=== PATIENT | female | born 1950 | race Asian ===

== ENCOUNTER 2019-03-06 15:14 | Emergency (ER) | payer MEDICARE, OTHER ==
[~2019-03-06] VITALS: Ht 162.6 cm; Wt 75.9 kg
[2019-03-06] MEDS ORDERED: SITA1TBM4 PO (15:34)
[2019-03-06] MEDS ORDERED: ASPI81 PO (15:34)
[2019-03-06] MEDS ORDERED: TELM40 PO (15:34)
[2019-03-06] MEDS ORDERED: ATOR40TA28 PO (15:34)
[2019-03-06] MEDS ORDERED: GLYB5 PO (15:34)
[2019-03-06 15:44] LABS: GLUCOSE,POINT OF CARE 250 MG/DL (70-110)
[2019-03-06] MEDS ORDERED: ACETAMINOPHEN 500 MG TABLET PO ONE (16:45)
[2019-03-06 17:27] VITALS: BP 142/82
== END 2019-03-06 17:50 | disposition home or self-care (01) ==
LOC: EMS 15:16
DX: S40.012A Contusion of left shoulder, initial encounter (principal); E11.9 Type 2 diabetes mellitus without complications; E78.00 Pure hypercholesterolemia, unspecified; I10 Essential (primary) hypertension; Z79.82 Long term (current) use of aspirin; W01.0XXA Fall on same level from slipping, tripping and stumbling without subsequent striking against object, initial encounter; Y93.01 Activity, walking, marching and hiking; Y92.89 Other specified places as the place of occurrence of the external cause; Y99.8 Other external cause status

== ENCOUNTER 2020-11-16 13:52 | Emergency (ER) | payer MEDICARE, OTHER ==
[~2020-11-16] VITALS: Ht 162.6 cm; Wt 75.5 kg
[~2020-11-16 13:52] MED LIST: ASPI-1450 PO; ATOR40TA28 PO; GLYB5TAB10 PO; SITA1TBM4 PO; TELM40 PO
[2020-11-16 14:29] LABS: GLUCOSE,POINT OF CARE 163 MG/DL (70-110)
[2020-11-16] MEDS ORDERED: LIDOCAINE 1% 10 ML VIAL ID ONE (14:45)
[2020-11-16] MEDS ORDERED: POVIDONE-IODINE 10% 15 ML SOLUTION UD TP ONE (14:45)
[2020-11-16 15:20] VITALS: BP 150/85
== END 2020-11-16 15:25 | disposition home or self-care (01) ==
LOC: EMS 13:55
DX: L03.011 Cellulitis of right finger (principal); E11.9 Type 2 diabetes mellitus without complications; E78.00 Pure hypercholesterolemia, unspecified; I10 Essential (primary) hypertension; Z79.82 Long term (current) use of aspirin
CPT/HCPCS: 10060; 82962; 99283; J3490; 99282

== ENCOUNTER 2021-08-04 09:28 | Emergency (ER) | payer MEDICARE, OTHER ==
[~2021-08-04] VITALS: Ht 157.5 cm; Wt 68.2 kg
[2021-08-04] MEDS ORDERED: POVIDONE-IODINE 10% 15 ML SOLUTION UD TP ONE (11:45)
[2021-08-04] MEDS ORDERED: LIDOCAINE 1%/EPI 1:200,000/PF 10 ML VIAL PERC ONE (11:45)
[2021-08-04] MEDS ORDERED: LIDOCAINE 1%/EPI 1:200,000/PF 30 ML VIAL PERC ONE (12:00)
[2021-08-04 12:03] VITALS: BP 127/77
== END 2021-08-04 12:41 | disposition home or self-care (01) ==
LOC: EMS 09:31
DX: L03.111 Cellulitis of right axilla (principal); E11.9 Type 2 diabetes mellitus without complications; Z79.899 Other long term (current) drug therapy; Z79.82 Long term (current) use of aspirin
CPT/HCPCS: 10060; 99283; J3490